=== PATIENT | female | born 1990 | race American Indian/Alaskan Native ===

== ENCOUNTER 2018-10-17 15:54 | Emergency (ER) | payer BC, OTHER ==
[2018-10-17 16:35] VITALS: BP 120/87
--- NOTE | 2018-10-17 16:37 | Emergency Department Report ---
Chief Complaint: Abdominal Pain Stated Complaint: CHEST PAIN/HEADACHE Time Seen by Provider: 10/17/18 16:35 - HPI History of Present Illness: Pt states she is currently on her menstrual cycle she is complaining of bilateral breast pain, suprapubic abdominal pain she denies any fever, urinary sx, N/V she states she tried aleve once without much relief MSE complete - Exam Vital Signs: Vital Signs 10/17/18 16:33 Temperature 97.9 F Pulse Rate 55 L Respiratory 16 Rate Blood Pressure 120/87 O2 Sat by Pulse 100 Oximetry MSE screening note: Focused history and physical exam performed. Due to findings the following was ordered: UA, urine preg ED Disposition for MSE Condition: Stable Instructions: Abdominal Pain (ED)
[2018-10-17 17:41] LABS: Bilirubin,Urine NEG (Negative); Blood,Urine LG (Negative); Color,Urine Yellow (Yellow); Mucus,Urine 2+ /HPF; Protein,Urine <15 mg/dL mg/dL (Negative); RBC,Urine < 1.0 /HPF (0.0-6.0); Urobilinogen,Urine < 2.0 mg/dL (<2.0)
[2018-10-17 17:49] LABS: HCG Qualitative,Urine Negative (Negative)
--- NOTE | 2018-10-17 19:25 | Emergency Department Report ---
ED Abdominal Pain HPI - General Chief Complaint: Abdominal Pain Stated Complaint: CHEST PAIN/HEADACHE Time Seen by Provider: 10/17/18 16:35 Source: patient Mode of arrival: Ambulatory Limitations: No Limitations - History of Present Illness Initial Comments: Pt is a 28 y/o aaf with presents bilat breast tenderness and abdominal pain states no current menese there is no fever or chills no n/v no vagina discharge pt states hx of abnormal periods this 2nd cycle in 3 weeks, pt denies hx of ovarian cyst or fibroids, is LMP 3 weeks ago, pain described as cramping 4/10 exacerbated by movement and activity, vaginal bleeding mimics normal cycle bleeding for this patietn. Complaint: abdominal pain Onset/Timin Location: LLQ, RLQ Radiation: suprapubic Severity scale (0 -10): 7 Quality: cramping, aching Consistency: constant Improves With: nothing Worsens With: movement Context: other (abdnormal cycles ) Associated Symptoms: denies: nausea, vomiting, fever, chills, dysuria - Related Data LMP (females 10-50): 3 weeks Previous Rx's Medication Instructions Recorded Last Taken Type Sulfamethoxazole/Trimethoprim 1 each PO BID #14 tablet 04/28/15 Unknown Rx [Bactrim DS TAB] Ibuprofen 800 mg PO TID PRN #30 tablet 10/17/18 Unknown Rx Allergies Allergy/AdvReac Type Severity Reaction Status Date / Time oregano AdvReac Rash Verified 04/28/15 17:50 ED Review of Systems ROS: Stated complaint: CHEST PAIN/HEADACHE Other details as noted in HPI Constitutional: denies: chills, fever Eyes: denies: eye pain, eye discharge, vision change ENT: denies: ear pain, throat pain Respiratory: denies: cough, shortness of breath, wheezing Cardiovascular: denies: chest pain, palpitations Endocrine: no symptoms reported Gastrointestinal: abdominal pain (cramping ). denies: nausea, vomiting, diarrhea, constipation, hematemesis Genitourinary: denies: urgency, dysuria, frequency, hematuria, discharge, abnormal menses, dyspareunia Musculoskeletal: denies: back pain, joint swelling, arthralgia Skin: denies: rash, lesions Neurological: as per HPI Psychiatric: denies: anxiety, depression Hematological/Lymphatic: denies: easy bleeding, easy bruising ED Past Medical Hx - Past Medical History Previous Medical History?: No - Surgical History Past Surgical History?: Yes - Social History Smoking Status: Current Every Day Smoker Substance Use Type: Alcohol - Medications Home Medications: Home Medications Medication Instructions Recorded Confirmed Last Taken Type Sulfamethoxazole/Trimethoprim 1 each PO BID #14 tablet 04/28/15 Unknown Rx [Bactrim DS TAB] Ibuprofen 800 mg PO TID PRN #30 tablet 10/17/18 Unknown Rx ED Physical Exam - General Limitations: No Limitations General appearance: alert, in no apparent distress - Head Head exam: Present: atraumatic, normocephalic - Eye Eye exam: Present: normal appearance, PERRL, EOMI Pupils: Present: normal accommodation - ENT ENT exam: Present: normal exam, mucous membranes moist - Neck Neck exam: Present: normal inspection, full ROM - Respiratory Respiratory exam: Present: normal lung sounds bilaterally. Absent: respiratory distress - Cardiovascular Cardiovascular Exam: Present: regular rate, normal rhythm. Absent: systolic murmur, diastolic murmur, rubs, gallop - GI/Abdominal GI/Abdominal exam: Present: soft, normal bowel sounds. Absent: distended, tenderness, guarding, rebound, rigid, bruit, hernia - Rectal Rectal exam: Present: deferred - External exam: Present: other (deferred per patient ) - Extremities Exam Extremities exam: Present: normal inspection, normal capillary refill. Absent: full ROM, joint swelling - Back Exam Back exam: Present: normal inspection, full ROM. Absent: tenderness, CVA tenderness (R), CVA tenderness (L), muscle spasm, paraspinal tenderness, vertebral tenderness, rash noted - Neurological Exam Neurological exam: Present: alert, oriented X3, CN II-XII intact, normal gait, reflexes normal. Absent: motor sensory deficit - Psychiatric Psychiatric exam: Present: normal affect, normal mood - Skin Skin exam: Present: warm, dry, intact, normal color. Absent: rash ED Course Vital Signs 10/17/18 16:33 Temperature 97.9 F Pulse Rate 55 L Respiratory 16 Rate Blood Pressure 120/87 O2 Sat by Pulse 100 Oximetry ED Medical Decision Making - Lab Data Result diagrams: 10/17/18 19:38 10/17/18 19:38 Labs 10/17/18 10/17/18 10/17/18 16:43 19:38 19:38 WBC 4.9 RBC 4.05 Hgb 12.6 Hct 37.4 MCV 93 MCH 31 MCHC 34 RDW 12.9 L Plt Count 250 Lymph % (Auto) 44.1 H [place] % (Auto) 7.6 H Eos % (Auto) 5.0 H Baso % (Auto) 0.6 Lymph # 2.2 [place] # 0.4 Eos # 0.2 Baso # 0.0 Seg Neutrophils % 42.7 Seg Neutrophils # 2.1 Sodium 140 Potassium 4.1 Chloride 105.4 Carbon Dioxide 23 Anion Gap 16 BUN 11 Creatinine 0.6 L Estimated GFR > 60 BUN/Creatinine Ratio 18 Glucose 103 H Calcium 9.0 Total Bilirubin 0.40 AST 17 ALT 10 Alkaline Phosphatase 72 Total Protein 6.9 Albumin 4.1 Albumin/Globulin Ratio 1.5 Lipase 31 Urine Color Yellow Urine Turbidity Clear Urine pH 5.0 Ur Specific [place] 1.032 H Urine Protein <15 mg/dl Urine Glucose (UA) Neg Urine Ketones Neg Urine Blood Lg Urine Nitrite Neg Urine Bilirubin Neg Urine Urobilinogen < 2.0 Ur Leukocyte Esterase Neg Urine WBC (Auto) 1.0 Urine RBC (Auto) < 1.0 U Epithel Cells (Auto) 4.0 Urine Mucus 2+ Urine HCG, Qual Negative - EKG Data EKG shows normal: sinus rhythm - EKG Data When compared to previous EKG there are: previous EKG unavailable Interpretation: normal EKG (Ekg interp by ed attending, sinus Bradycardia no ST elevation no ectopy ) - Radiology Data Radiology results: report reviewed, image reviewed INDINGS: The cardiomediastinal silhouette is unremarkable. No infiltrate, effusion, or pneumothorax. No acute osseous abnormality. IMPRESSION: No radiographic evidence of acute abnormality. This document is electronically signed by Chiara Grey MD., October 17 2018 08:1 6:34 PM ET Transcribed By: [facility] Dictated By: CHIARA GREY M.D. Electronically Authenticated By: CHIARA GREY M.D. Signed Date/Time: 10/17/182018 DD/ 34 - Medical Decision Making pain improved with medication given in ed, cxr: normal no infiltrate no opacities, labs normal cmp, cbc, UA, abd exam normal no tenderness no peritoneal signs , this is recurring problem with hx of abnormal menses, h/h is stable today, plan , ibuprofen, follow up with [facility] in 2-3 days pt verbalized agreement and understanding of same. Critical care attestation.: If time is entered above; I have spent that time in minutes in the direct care of this critically ill patient, excluding procedure time. ED Disposition Clinical Impression: Abnormal uterine bleeding (AUB) Abdominal pain Qualifiers: Abdominal location: lower abdomen, unspecified Qualified Code(s): R10.30 - Lower abdominal pain, unspecified Disposition: TO HOME OR SELFCARE Is pt being admited?: No Does the pt Need Aspirin: No Condition: Stable Instructions: Abdominal Pain (ED) Prescriptions: Ibuprofen 800 mg PO TID PRN #30 tablet PRN Reason: pain Referrals: LINNETTE BARAHONA MD [Staff Physician] - 3-5 Days [facility] [Provider Group] - 3-5 Days Forms: Work/School Release Form(ED) Time of Disposition: 21:01
[2018-10-17 19:59] LABS: Basophils % (Auto) 0.6 % (0.0-1.8); Eosinophils # (Auto) 0.2 K/mm3 (0.0-0.4); Hematocrit 37.4 % (30.3-42.9); Hemoglobin 12.6 gm/dl (10.1-14.3); Lymphocytes # (Auto) 2.2 K/mm3 (1.2-5.4); Lymphocytes % (Auto) 44.1 % (13.4-35.0); Mean Corpuscular HGB Conc 34 % (30-34); Mean Corpuscular Volume 93 fl (79-97); Monocytes # (Auto) 0.4 K/mm3 (0.0-0.8); Monocytes % (Auto) 7.6 % (0.0-7.3); Platelet Count 250 K/mm3 (140-440); Red Blood Count 4.05 M/mm3 (3.65-5.03); Red Cell Distribution Width 12.9 % (13.2-15.2)
--- NOTE | 2018-10-17 20:19 | XRay Report ---
PROCEDURE: XR CHEST ROUTINE 2V TECHNIQUE: PA and lateral views of the chest were obtained HISTORY: Chest pain COMPARISONS: None available FINDINGS: The cardiomediastinal silhouette is unremarkable. No infiltrate, effusion, or pneumothorax. No acute osseous abnormality. IMPRESSION: No radiographic evidence of acute abnormality. This document is electronically signed by Chiara Grey MD., October 17 2018 08:16:34 PM ET
[2018-10-17 20:38] LABS: Alanine Aminotransferase 10 units/L (7-56); Albumin 4.1 g/dL (3.9-5); BUN/Creatinine Ratio 18; Blood Urea Nitrogen 11 mg/dL (7-17); Hemolysis Index 16
== END 2018-10-17 21:09 | disposition home or self-care (01) ==
LOC: ED 15:54
DX: R10.30 Lower abdominal pain, unspecified (principal); N93.9 Abnormal uterine and vaginal bleeding, unspecified; F17.200 Nicotine dependence, unspecified, uncomplicated
CPT/HCPCS: 36415; 71046; 80053; 81001; 81025; 83690; 85025; 93005; 93010